=== PATIENT | male | born 1950 | race Hispanic/Latino ===

== ENCOUNTER → 2022-07-20 | Outpatient (CLI) | payer OTHER, MEDICARE | END | disposition home or self-care (01) | LOC: SHCH 12:28 | PROVIDERS: ATTEND Internal Medicine Cardiovascular Disease | DX: I21.4 Non-ST elevation (NSTEMI) myocardial infarction (principal); I08.3 Combined rheumatic disorders of mitral, aortic and tricuspid valves; I27.20 Pulmonary hypertension, unspecified | CPT/HCPCS: 93306 ==

== ENCOUNTER 2022-08-07 08:42 | Day surgery (SDC) | payer OTHER, MEDICARE ==
[2022-08-06 12:16] LABS: BASOPHILS % (AUTO) 0.8 % (0.0-5.0); EOSINOPHILS % (AUTO) 9.2 % (0.0-8.0); HEMATOCRIT 36.4 % (42-54); LYMPHOCYTES % (AUTO) 37.9 % (21.0-51.0); MEAN CORPUSCULAR HEMOGLOBIN 30.3 pg (27.0-33.0); MEAN CORPUSCULAR HGB CONC 31.9 g/dL (32.0-36.0); NEUTROPHILS % (AUTO) 41.1 % (40.0-77.0); PLATELET COUNT (AUTO) 165 K/uL (130-400); RED BLOOD CELL COUNT(AUTO) 3.83 MIL/uL (4.50-6.20); RED CELL DISTRIBUTION WIDTH 15.7 % (11.0-15.5); WHITE BLOOD COUNT (AUTO) 3.9 K/uL (4.8-10.8)
[2022-08-06 12:46] LABS: POTASSIUM 4.7 mmol/L (3.5-5.1)
[2022-08-06 12:50] LABS: CREATININE 9.5 mg/dL (0.5-1.5)
[~2022-08-07] VITALS: Ht 175.3 cm; Wt 68.9 kg
[2022-08-07] VITALS (11 sets, daily range): BP systolic 144–178; BP diastolic 53–88
[~2022-08-07 08:42] MED LIST: AMLO-258 PO; ATOR20TA65 PO; CARV25TA PO; CLON1PAT13 TD; DOCU100T PO; FURO40TA5 PO; HYDR100T27 PO; LIPA1CAP18 PO; LOSA50TA64 PO; MINO10TA3 PO; SUCR500T PO
[2022-08-07] MEDS ORDERED: 0.9%NACL 1000ML 1,000 ML IV ONE (09:06)
[2022-08-07] MEDS ORDERED: PROPOFOL 10 MG/ML 20ML VIAL IV ONE ×2 (11:26→11:27)
== END 2022-08-07 13:25 | disposition home or self-care (01) ==
LOC: DAH 08:42
PROVIDERS: ATTEND Internal Medicine Gastroenterology
DX: R93.3 Abnormal findings on diagnostic imaging of other parts of digestive tract (principal); K83.8 Other specified diseases of biliary tract; K86.89 Other specified diseases of pancreas; R63.4 Abnormal weight loss; K76.9 Liver disease, unspecified; D63.1 Anemia in chronic kidney disease; K59.04 Chronic idiopathic constipation; E11.22 Type 2 diabetes mellitus with diabetic chronic kidney disease; I12.9 Hypertensive chronic kidney disease with stage 1 through stage 4 chronic kidney disease, or unspecified chronic kidney disease; N18.9 Chronic kidney disease, unspecified; E78.00 Pure hypercholesterolemia, unspecified; Z98.890 Other specified postprocedural states; Z90.49 Acquired absence of other specified parts of digestive tract; Z68.22 Body mass index [BMI] 22.0-22.9, adult; Z86.73 Personal history of transient ischemic attack (TIA), and cerebral infarction without residual deficits
CPT/HCPCS: 80048; 85025; 87426; 36415 ×2; 43237; 84132; 82948 ×2; J7030; J2704 ×2; A4620; A4215 ×2; A4223; A4222; A4221; A4663; A4606; 93005